=== PATIENT | female | born 1965 | race African-American/Black ===

== ENCOUNTER 2025-07-25 07:55 | Outpatient (CLI) | payer MEDICARE ==
[2025-07-25 09:38] LABS: #Basophils 0.03 10x3/uL (0.0-0.2); #Eosinophils 0.26 10x3/uL (0.0-0.7); #Monocytes 0.53 10x3/uL (0.11-0.59); #Neutrophils 2.90 10x3/uL (1.40-6.50); %Basophils 0.4 % (0.0-1.0); %Eosinophils 3.8 % (0.0-10.0); %Lymphocytes 45.7 % (21.0-51.0); %Monocytes 7.7 % (0.0-10.0); %Neutrophils 42.3 % (42.0-75.0); Hematocrit 40.1 % (36.0-47.0); Hemoglobin 12.0 g/dL (12.0-16.0); Mean Corpuscular Hemoglobin 26.0 pg (27.0-31.0); Mean Corpuscular Volume 87.0 fL (78.0-98.0); Platelet Count 300 10x3/uL (130-400); Red Blood Cell (RBC) Count 4.61 mill/uL (4.20-5.40); White Blood Cell (WBC) Count 6.87 10x3/uL (4.8-10.8)
[2025-07-25 09:50] LABS: ALT (SGPT) Less than 7 U/L (Less than 34); AST (SGOT) 15 U/L (11-34); Albumin 3.8 g/dL (3.1-4.5); Alkaline Phosphatase 54 U/L (40-110); Anion Gap 13 mmol/L (10-20); BUN (Urea Nitrogen) 18 mg/dL (9.8-20.1); Bilirubin, Total 0.2 mg/dL (0.3-1.2); Calc. Creatinine Clearance 0 mL/min (70-130); Calcium 9.4 mg/dL (7.8-10.44); Carbon Dioxide 29 mmol/L (23-31); Chloride 105 mmol/L (98-107); Globulin 3.2 g/dL (2.4-3.5); Glucose 93 mg/dL (80-115); Potassium 4.2 mmol/L (3.5-5.1); Sodium 143 mmol/L (136-145)
== END 2025-07-25 07:56 | disposition home or self-care (01) ==
LOC: LABBT 07:55
PROVIDERS: ATTEND Surgery
DX: Z01.818 Encounter for other preprocedural examination (principal); R10.812 Left upper quadrant abdominal tenderness; K66.0 Peritoneal adhesions (postprocedural) (postinfection)
CPT/HCPCS: 80053; 85025; 93005; 93010

== ENCOUNTER 2025-08-01 09:27 | Day surgery (SDC) | payer MEDICARE ==
[2025-07-25 08:41] VITALS: BMI 32.4
[2025-08-01] MEDS ORDERED: Rocuronium Bromide 10 MG/ML (10ML VIAL) ONE (10:56)
[2025-08-01] MEDS ORDERED: Lidocaine 1% PF 5 ML VIAL ONE (10:56)
[2025-08-01] MEDS ORDERED: PROPOFOL 20 ML ONE (10:57)
[2025-08-01] MEDS ORDERED: Bupivacaine 0.25% HCL 30 ML VIAL ONE (12:12)
[2025-08-01] MEDS ORDERED: CEFAZOLIN 2 GM VIAL ONE (12:25)
[2025-08-01] MEDS ORDERED: fentaNYL PF 100 MCG/2 ML SYRINGE ONE (12:32)
[2025-08-01] MEDS ORDERED: SUGAMMADEX SODIUM 200 MG/2 ML VIAL ONE (13:12)
[2025-08-01] MEDS ORDERED: Ondansetron PF 4 MG/2 ML Vial ONE (13:12)
[2025-08-01] MEDS ORDERED: HYDROcodone/Acetaminophen 5/325 mg Tablet ONE (15:29)
== END 2025-08-01 16:15 | disposition home or self-care (01) ==
LOC: SDC 09:27
PROVIDERS: ATTEND Surgery
PROC: 0DJ08ZZ Inspection of Upper Intestinal Tract, Via Natural or Artificial Opening Endoscopic (ICD-10-PCS; principal; 2025-08-01)
PROC: 0DNW4ZZ Release Peritoneum, Percutaneous Endoscopic Approach (ICD-10-PCS; 2025-08-01)
DX: K66.0 Peritoneal adhesions (postprocedural) (postinfection) (principal); R10.812 Left upper quadrant abdominal tenderness; G89.29 Other chronic pain; E78.5 Hyperlipidemia, unspecified; I10 Essential (primary) hypertension; Z79.899 Other long term (current) drug therapy; Z88.8 Allergy status to other drugs, medicaments and biological substances
CPT/HCPCS: 43235; 44180; J0169; J0665; J1100; J2250; J2272; J2704; S2900